=== PATIENT | male | born 1970 | race Caucasian/White ===

== ENCOUNTER 2019-01-01 16:59 | Emergency (ER) | payer SELFPAY ==
[~2019-01-01] VITALS: Ht 185.4 cm; Wt 140.2 kg
[2019-01-01 17:11] VITALS: Ht 185.4 cm; Wt 140.2 kg
[2019-01-01 18:41] VITALS: BP 130/65
== END 2019-01-01 18:41 | disposition home or self-care (01) ==
LOC: ED 16:59
DX: S52.502A Unspecified fracture of the lower end of left radius, initial encounter for closed fracture (principal); Z98.890 Other specified postprocedural states; W11.XXXA Fall on and from ladder, initial encounter; Y93.89 Activity, other specified; Y92.89 Other specified places as the place of occurrence of the external cause; Y99.8 Other external cause status

== ENCOUNTER 2019-01-18 11:16 | Emergency (ER) | payer SELFPAY ==
[~2019-01-18] VITALS: Ht 185.4 cm; Wt 135.6 kg
[2019-01-18 11:28] VITALS: Ht 185.4 cm; Wt 135.6 kg
[2019-01-18 13:14] VITALS: BP 168/117
== END 2019-01-18 13:16 | disposition home or self-care (01) ==
LOC: ED 11:16
DX: S52.502D Unspecified fracture of the lower end of left radius, subsequent encounter for closed fracture with routine healing (principal); S52.612D Displaced fracture of left ulna styloid process, subsequent encounter for closed fracture with routine healing; X58.XXXD Exposure to other specified factors, subsequent encounter